=== PATIENT | female | born 1990 | race Caucasian/White ===

== ENCOUNTER 2017-12-06 11:58 | Outpatient (CLI) | payer OTHER | END 2017-12-06 14:15 | disposition home or self-care (01) | LOC: OBT 11:58 → L-D 11:58 → OBT 14:15 | DX: O09.293 Supervision of pregnancy with other poor reproductive or obstetric history, third trimester (principal); Z3A.37 37 weeks gestation of pregnancy | CPT/HCPCS: 76818 ==

== ENCOUNTER 2017-12-09 10:23 | Outpatient (CLI) | payer OTHER | END 2017-12-09 12:14 | disposition home or self-care (01) | LOC: OBT 10:23 → L-D 10:24 → OBT 12:14 | DX: O09.293 Supervision of pregnancy with other poor reproductive or obstetric history, third trimester (principal); Z3A.36 36 weeks gestation of pregnancy | CPT/HCPCS: 76818 ==

== ENCOUNTER 2017-12-12 10:08 | Inpatient (IN) | payer OTHER ==
[2017-12-12] MEDS ORDERED: CARBOPROST 250 MCG INJ IM ×2 (11:30→19:00)
[2017-12-12] MEDS ORDERED: OXYTOCIN 30 UNITS/LR 500 ML IV ×3 (11:30→19:00)
[2017-12-12] MEDS ORDERED: MISOPROSTOL 200 MCG TAB PR ×2 (11:30→19:00)
[2017-12-12] MEDS ORDERED: METHYLERGONOVINE 0.2 MG INJ IM ×2 (11:30→19:00)
[2017-12-12 11:40] LABS: ADD MAN DIFF? NO
[2017-12-12 11:48] LABS: WHITE BLOOD COUNT 7.8 10^3/ul (4.8-10.8)
[2017-12-12 11:48] LABS: BASOPHILS % 0.3 % (0.0-2.0); EOSINOPHILS % 0.3 % (0.0-7.0); HEMATOCRIT 36.1 % (37.0-47.0); HEMOGLOBIN 11.8 g/dl (12.0-16.0); LYMPHOCYTES # 2.4 10^3/ul (0.8-2.9); LYMPHOCYTES % 30.4 % (15.0-51.0); MEAN CORPUSCULAR HEMOGLOBIN 27.8 pg (29.0-33.0); MEAN CORPUSCULAR HGB CONC 32.7 g/dl (32.0-37.0); MEAN CORPUSCULAR VOLUME 85.1 fl (82.0-101.0); MONOCYTE # 0.6 10^3/ul (0.3-0.9); MONOCYTES % 7.6 % (0.0-11.0); NEUTROPHIL # 4.8 10^3/ul (1.6-7.5); PLATELET COUNT 171 10^3/UL (140-415); RED BLOOD COUNT 4.24 10^6/ul (4.20-5.40); RED CELL DISTRIBUTION WIDTH 13.1 % (11.5-14.5)
[2017-12-12] MEDS: LACTATED RINGER'S 1,000 ML IV (11:54)
[2017-12-12 12:18] LABS: INR 0.89; PROTIME 12.1 Sec (11.9-14.9); PT RATIO 0.9
[2017-12-12 12:19] LABS: PARTIAL THROMBOPLASTIN TIME 27.4 Sec (25.0-35.0)
[2017-12-12] MEDS ORDERED: FENTAnyl 50 MCG/ML VIAL (14:27)
[2017-12-12] MEDS ORDERED: morphine SULFATE/PF (10 MG/10 ML) INJ (14:27)
[2017-12-12] MEDS ORDERED: CITRIC ACID/SODIUM CITRATE 15 ML CUP (14:29)
[2017-12-12] MEDS ORDERED: METOCLOPRAMIDE 10 MG INJ (14:29)
[2017-12-12 14:36] LABS: HEPATITIS B SURFACE ANTIGEN NEGATIVE (NEGATIVE)
[2017-12-12] MEDS ORDERED: PHENYLephrine (100 MCG/ML) 5ML SYG (14:38)
[2017-12-12] MEDS ORDERED: EPHEDrine SULFATE 50 MG/5 ML SYG (14:47)
[2017-12-12] MEDS ORDERED: ONDANSETRON 4 MG INJ (14:50)
[2017-12-12] MEDS ORDERED: PROCHLORPERAZINE 10 MG INJ IV (15:00)
[2017-12-12] MEDS ORDERED: HYDROmorphONE 0.5 MG/0.5 ML SYG IV (15:00)
[2017-12-12] MEDS ORDERED: DIPHENHYDRAMINE 50 MG INJ IV (15:00)
[2017-12-12] MEDS ORDERED: HYDROmorphONE (0.2 MG/ML) 10ML SYG IV (15:00)
[2017-12-12] MEDS ORDERED: FENTAnyl 50 MCG/ML VIAL IV (15:00)
[2017-12-12] MEDS ORDERED: ONDANSETRON 4 MG INJ IV ×2 (15:00)
[2017-12-12] MEDS ORDERED: MEPERIDINE 25 MG INJ IV (15:00)
[2017-12-12] MEDS ORDERED: ZOLPIDEM 5 MG TAB PO (15:00)
[2017-12-12] MEDS ORDERED: NALOXONE (0.4 MG/ML) INJ IV (15:00)
[2017-12-12] MEDS: CEFAZOLIN 2 GM/50 ML (PMX) 50 ML IV (16:26)
[2017-12-12] MEDS: CITRIC ACID/SODIUM CITRATE 15 ML CUP PO (16:31)
[2017-12-12] MEDS: METOCLOPRAMIDE 10 MG INJ IV (16:32)
[2017-12-12] MEDS: KETOROLAC 30 MG INJ IV (16:35)
[2017-12-12] MEDS: DIPHENHYDRAMINE 50 MG INJ IV (16:51)
[2017-12-12] MEDS: OXYTOCIN 30 UNITS/LR 500 ML IV (17:39)
[2017-12-12 22:31] LABS: RAPID PLASMA REAGIN NONREACTIVE (NR)
[2017-12-13] MEDS: LACTATED RINGER'S 1,000 ML IV (00:12)
[2017-12-13] MEDS: OXYTOCIN 30 UNITS/LR 500 ML IV ×7 (00:13→18:24)
[2017-12-13] MEDS: CEFAZOLIN 1 GM/50 ML (PMX) 50 ML IVPB (00:25)
[2017-12-13] MEDS: KETOROLAC 30 MG INJ IV (06:32)
[2017-12-13] MEDS: HYDROmorphONE 0.5 MG/0.5 ML SYG IV ×2 (07:40→12:31)
[2017-12-13] MEDS: SENNA/DOCUSATE NA (8.6MG/50MG) TAB PO ×2 (09:00→20:10)
[2017-12-13 09:20] LABS: ADD MAN DIFF? NO
[2017-12-13 09:24] LABS: BASOPHILS % 0.2 % (0.0-2.0); EOSINOPHILS % 0.2 % (0.0-7.0); HEMATOCRIT 29.5 % (37.0-47.0); HEMOGLOBIN 9.6 g/dl (12.0-16.0); LYMPHOCYTES # 1.7 10^3/ul (0.8-2.9); LYMPHOCYTES % 18.7 % (15.0-51.0); MEAN CORPUSCULAR HEMOGLOBIN 27.8 pg (29.0-33.0); MEAN CORPUSCULAR HGB CONC 32.5 g/dl (32.0-37.0); MEAN CORPUSCULAR VOLUME 85.5 fl (82.0-101.0); MEAN PLATELET VOLUME 12.6 fl (7.4-10.4); MONOCYTE # 0.6 10^3/ul (0.3-0.9); MONOCYTES % 6.7 % (0.0-11.0); NEUTROPHIL # 6.5 10^3/ul (1.6-7.5); NEUTROPHILS % 73.7 % (39.0-77.0); PLATELET COUNT 135 10^3/UL (140-415); RED BLOOD COUNT 3.45 10^6/ul (4.20-5.40); RED CELL DISTRIBUTION WIDTH 13.4 % (11.5-14.5)
[2017-12-13 09:24] LABS: WHITE BLOOD COUNT 8.9 10^3/ul (4.8-10.8)
[2017-12-13] MEDS ORDERED: HYDROCODONE/APAP (5/325) TAB PO (14:33)
[2017-12-13] MEDS: OXYCODONE/ACETAMINOPHEN (5/325) TAB PO ×2 (14:53→20:10)
[2017-12-13] MEDS: IBUPROFEN 600 MG TAB PO ×2 (17:39→23:14)
[2017-12-14] MEDS: OXYCODONE/ACETAMINOPHEN (5/325) TAB PO ×3 (01:19→19:34)
[2017-12-14] MEDS: IBUPROFEN 600 MG TAB PO ×4 (05:19→23:48)
[2017-12-14] MEDS: SENNA/DOCUSATE NA (8.6MG/50MG) TAB PO ×2 (09:15→21:28)
[2017-12-14] MEDS: LANOLIN 7 GM TUBE TOP (09:16)
[2017-12-14] MEDS: HYDROCODONE/APAP (5/325) TAB PO ×3 (10:22→23:48)
[2017-12-15] MEDS: OXYCODONE/ACETAMINOPHEN (5/325) TAB PO (02:58)
[2017-12-15] MEDS: IBUPROFEN 600 MG TAB PO ×2 (05:50→12:31)
[2017-12-15] MEDS: HYDROCODONE/APAP (5/325) TAB PO ×2 (05:51→09:48)
[2017-12-15] MEDS: DIPHTH/TET/ACEL PERTUSS (ADULT) 0.5 ML VIAL IM* (07:48)
[2017-12-15] MEDS: SENNA/DOCUSATE NA (8.6MG/50MG) TAB PO (09:43)
[2017-12-15] MEDS: NA PHOSPHATE/BIPHOS 133 ML ENEMA PR (12:31)
== END 2017-12-15 15:05 | disposition home or self-care (01) | DRG 766 ==
LOC: OBT 10:08 → L-D 10:10 → OBT 11:02 → L-D 11:00 → PP1 18:34
PROVIDERS: Obstetrics & Gynecology
PROC: 10D00Z1 Extraction of Products of Conception, Low, Open Approach (ICD-10-PCS; principal; 2017-12-12)
PROC: 3E033VJ Introduction of Other Hormone into Peripheral Vein, Percutaneous Approach (ICD-10-PCS; 2017-12-12)
DX: O34.211 Maternal care for low transverse scar from previous cesarean delivery (principal); Z37.0 Single live birth; Z3A.38 38 weeks gestation of pregnancy
CPT/HCPCS: 76818; 85025; 85610; 85730; 86592; 86850; 86900; 86901; 87340; 99464